=== PATIENT | male | born 1960 | race Caucasian/White ===

== ENCOUNTER → 2020-03-29 10:15 | Outpatient (BNVA) | payer OTHER, SELFPAY | PROVIDERS: PCP Internal Medicine; Referring Provider Internal Medicine; Visit Provider Orthopaedic Surgery | DX: M87.019 Idiopathic aseptic necrosis of unspecified shoulder (principal) | CPT/HCPCS: 20610; 99212; J1040 ==

== ENCOUNTER 2020-05-30 10:21 | Outpatient (REF) | payer OTHER, SELFPAY ==
--- NOTE | 2020-05-30 10:48 | XR_ITS ---
EXAMINATION: XR SHOULDER, LEFT CLINICAL INFORMATION: Unremarkable left shoulder. COMPARISON: None TECHNIQUE: AP external rotation, Grashey, scapular Y, and axillary views of the left shoulder. FINDINGS: There is mild loss of glenohumeral joint effusion AC joint is intact. There is no acute fracture or dislocation or lytic process. No bony erosive changes. The soft tissues are normal. 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
== END 2020-05-30 10:22 | disposition home or self-care (01) ==
LOC: HO.HOSX 10:21
PROVIDERS: PCP Internal Medicine; Visit Provider Orthopaedic Surgery
DX: M25.519 Pain in unspecified shoulder (principal); M87.019 Idiopathic aseptic necrosis of unspecified shoulder; M75.42 Impingement syndrome of left shoulder
CPT/HCPCS: 73030; 99212

== ENCOUNTER 2020-06-09 08:21 | Outpatient (REF) | payer OTHER, SELFPAY ==
--- NOTE | 2020-06-09 08:25 | MR_ITS ---
EXAMINATION: MRI LEFT SHOULDER WITHOUT CONTRAST CLINICAL INFORMATION: Left shoulder clicking. Severe pain. History of avascular necrosis of the hips. History of surgery 30 years ago. COMPARISON: Left shoulder radiograph dated May 30, 2019. TECHNIQUE: MR images of the shoulder were obtained on a 1.5 Akanksha high-field strength scanner without intravenous contrast material. FINDINGS: Rotator cuff: There is marked thickening and intermediate signal intensity of the supraspinatus, infraspinatus, and superior distal fibers of the subscapularis tendon. Teres minor tendon is intact. No rotator cuff muscle atrophy or fatty infiltration is identified. Labrum: Suture anchor in the glenoid at the 12:00 position. No labral tear is identified. Biceps: Marked thickening of the long head biceps tendon in the proximal bicipital groove with associated intermediate T2 signal. Ligament/Capsule: No capsular thickening or pericapsular edema. Bone/Cartilage: No Hill Sachs or osseous Bankart lesion is identified. The bone marrow signal intensity is within normal limits. No full-thickness cartilage defect is seen. Acromioclavicular joint: There is mild acromioclavicular hypertrophy. No subjacent marrow edema. Type II acromial morphology. No associated subacromial osteophyte formation is noted. Miscellaneous: No subacromial/subdeltoid bursal fluid accumulation. Quadrilateral space, suprascapular notch and spinoglenoid notch are normal in appearance. MR/MR shoulder LT wo con IMPRESSION: Left shoulder 1. Severe supraspinatus, infraspinatus, and subscapularis tendinosis. No evidence of rotator cuff tear. 2. Moderate biceps tendinosis. Small biceps tendon sheath effusion and mild biceps sheath synovial thickening. 3. Postsurgical changes of suture anchor placement in the 12:00 position of the glenoid. No evidence of labral tear. 4. Mild acromioclavicular joint arthrosis.
== END 2020-06-09 08:22 | disposition home or self-care (01) ==
LOC: HO.MRI 08:21
PROVIDERS: PCP Internal Medicine; Visit Provider Orthopaedic Surgery
DX: M75.42 Impingement syndrome of left shoulder (principal)
CPT/HCPCS: 73221

== ENCOUNTER → 2020-07-12 10:15 | Outpatient (BNVA) | payer OTHER, SELFPAY | PROVIDERS: Visit Provider Orthopaedic Surgery | DX: M25.511 Pain in right shoulder (principal) | CPT/HCPCS: 20610; J1040 ==

== ENCOUNTER → 2020-08-16 08:48 | Outpatient (BNVA) | payer OTHER, SELFPAY | PROVIDERS: Visit Provider Orthopaedic Surgery | DX: M87.019 Idiopathic aseptic necrosis of unspecified shoulder (principal) | CPT/HCPCS: 99212 ==

== ENCOUNTER 2020-08-22 08:43 | Outpatient (REF) | payer OTHER, SELFPAY ==
--- NOTE | ~2020-08-22 | XR_ITS ---
EXAMINATION: XR HAND, LEFT CLINICAL INFORMATION: Pain COMPARISON: None TECHNIQUE: PA, lateral, and oblique views of the left hand. FINDINGS: The bones and soft tissues are normal. No fracture. Alignment is anatomic. Joint spaces are maintained. No erosions or soft tissue calcifications. XR/XR hand LT min 3V IMPRESSION: Normal left hand.
== END 2020-08-22 08:44 | disposition home or self-care (01) ==
LOC: HO.HOSX 08:43
PROVIDERS: Visit Provider Orthopaedic Surgery
DX: M79.642 Pain in left hand (principal); M79.645 Pain in left finger(s)
CPT/HCPCS: 73130; 99202

== ENCOUNTER 2020-09-04 07:49 | Outpatient (REF) | payer OTHER, SELFPAY ==
--- NOTE | ~2020-09-04 | XR_ITS ---
EXAMINATION: XR SHOULDER, RIGHT CLINICAL INFORMATION: Right shoulder pain. COMPARISON: Right shoulder radiographs dated 02/16/2020. TECHNIQUE: AP, Grashey, and axillary views of the right shoulder. FINDINGS: Redemonstration of humeral head sclerosis, consistent with avascular necrosis. No new cortical collapse or osseous erosion. No acute fracture or dislocation. Mild acromioclavicular osteoarthritis, unchanged. No abnormal soft tissue calcification. XR/XR shoulder RT min 2V IMPRESSION: No acute fracture or dislocation. Redemonstration of humeral head sclerosis, consistent with previously seen avascular necrosis. No new osseous erosion or cortical collapse. Mild acromioclavicular osteoarthritis, unchanged.
== END 2020-09-04 07:50 | disposition home or self-care (01) ==
LOC: HO.HOSX 07:49
PROVIDERS: Visit Provider Orthopaedic Surgery
DX: M25.511 Pain in right shoulder (principal)
CPT/HCPCS: 73030; 99212